=== PATIENT | female | born 1945 | race Caucasian/White ===

== ENCOUNTER 2017-04-07 21:17 | Inpatient (IN) | payer OTHER, MEDICARE ==
[~2017-04-07] VITALS: Ht 160 cm; Wt 64.2 kg
[~2017-04-07 21:17] MED LIST: ASPIR 8181 M1 PO; ASPIRIN EC325 MG PO; ATORVASTATIN CA10 MG PO; CELECOXIB200 MG PO; CENTRUM SILVER1 EAC3 PO; CITRACAL + BON1 EACH PO; ENDOCET 5-3251 EACH PO; FISH OIL 1,0001 EAC7 PO; GAVISCON,GEN1 TABLE1 PO; GLUCOSAMINE-CH1 EA27 PO; IRON325 M1 PO; OMEPRAZOLE20 M2 PO; PRESERVISION T1 EACH PO; SENNA PLUS TAB1 EACH PO; TIMOPTIC-XE GEL5 ML LEFT EYE; TYLENOL EXTRA500 MG PO; VITAMIN B12 100MCG PO; VITAMIN D31000 UNI2 PO; VOLTAREN 1% GE100 GM TP; ZYRTEC10 M3 PO
[2017-04-08 06:09] VITALS: BP 143/73
[2017-04-08 09:55] LABS: HEMATOCRIT 40.2 % (36.0-46.0); MCH 31.4 PG (29.0-34.0); MCHC 32.8 G/DL (30.0-36.0); MCV 95.7 FL (83-99); MEAN PLAT.VOLUME 11.2 uM^3 (9.5-12.4); PLATELET COUNT 222 K/uL (156-360); RBC DIS.WIDTH-SD 45.6 % (39-53); WHITE BLOOD COUNT 7.7 K/uL (4.1-10.2)
[2017-04-08 11:06] VITALS: BP 123/65
[2017-04-08 15:34] VITALS: BP 135/61
[2017-04-08 19:53] VITALS: BP 121/60
[2017-04-08 23:50] VITALS: BP 111/54
[2017-04-09 03:54] VITALS: BP 114/56
[2017-04-09 07:39] LABS: HEMATOCRIT 35.7 % (36.0-46.0)
[2017-04-09 07:41] LABS: MCV 91.5 FL (83-99)
[2017-04-09 07:53] VITALS: BP 112/58
[2017-04-09 07:56] LABS: ANION GAP 5 MEQ/L (2-14); CHLORIDE 96 MEQ/L (99-109); GFR ESTIMATE (CALCULATED) > 59 mL/min/; GLUCOSE 133 mg/dL (70-99); POTASSIUM 3.9 MEQ/L (3.7-5.4); SAMPLE HEMOLYSIS CHECK 0; SAMPLE ICTERIC CHECK 0; SAMPLE LIPEMIA CHECK 0; SODIUM 128 MEQ/L (136-147); UREA NITROGEN (BUN) 6 mg/dL (9-23)
[2017-04-09 11:45] VITALS: BP 119/57
[2017-04-09 15:32] VITALS: BP 93/50
[2017-04-09 20:05] VITALS: BP 99/61
[2017-04-10 00:03] VITALS: BP 130/60
[2017-04-10 03:32] VITALS: BP 129/60
[2017-04-10 05:23] LABS: HEMATOCRIT 39.2 % (36.0-46.0)
[2017-04-10 05:58] LABS: ANION GAP 8 MEQ/L (2-14); CHLORIDE 105 MEQ/L (99-109); GFR ESTIMATE (CALCULATED) > 59 mL/min/; GLUCOSE 113 mg/dL (70-99); POTASSIUM 4.2 MEQ/L (3.7-5.4); SAMPLE HEMOLYSIS CHECK 0; SAMPLE ICTERIC CHECK 0; SAMPLE LIPEMIA CHECK 0; UREA NITROGEN (BUN) 8 mg/dL (9-23)
[2017-04-10 06:01] LABS: SODIUM 139 MEQ/L (136-147)
[2017-04-10 08:00] VITALS: BP 111/56
[2017-04-10] MEDS ORDERED: HYDROCODON-ACE1 EAC7 PO (08:54)
[2017-04-10] MEDS ORDERED: LOVENOX40 MG/0.4 SC (08:54)
[2017-04-10 12:00] VITALS: BP 111/54
== END 2017-04-10 14:44 | DRG 470 ==
LOC: ENRESERV 21:17 → 2SOUTH 04-08 05:34 → 3WEST 04-08 05:34 → 2SOUTH 04-08 12:13 → 3WEST 04-10 14:44
PROVIDERS: Orthopaedic Surgery; Physician Assistant
PROC: 0SRD0J9 Replacement of Left Knee Joint with Synthetic Substitute, Cemented, Open Approach (ICD-10-PCS; principal; 2017-04-08)
DX: M17.12 Unilateral primary osteoarthritis, left knee (principal); E78.5 Hyperlipidemia, unspecified; E87.1 Hypo-osmolality and hyponatremia; I49.1 Atrial premature depolarization; K21.9 Gastro-esophageal reflux disease without esophagitis; H40.9 Unspecified glaucoma; Z96.651 Presence of right artificial knee joint; Z82.49 Family history of ischemic heart disease and other diseases of the circulatory system
CPT/HCPCS: 73560; 80048; 85014; 85018; 85027; C1713; J0131; J0690; J1170; J1650; J2175; J2250; J2405; J7050